=== PATIENT | male | born 1960 | race Caucasian/White ===

== ENCOUNTER 2020-02-29 08:47 | Outpatient (CLI) | payer OTHER ==
[2020-02-29] MEDS ORDERED: Iopamidol 370 76% 100 ML VIAL ONE (12:48)
--- NOTE | 2020-02-29 17:56 | CT ---
CT ABDOMEN AND PELVIS WITH CONTRAST: 02/29/[address] of the abdomen and pelvis was done for evaluation of chronic right lower quadrant pain. The scans were done post IV contrast. The lung bases are clear. The liver, spleen, pancreas, adrenal glands and abdominal aorta showed no a cute findings. A 2 cm cyst is seen in the lower pole of the right kidney. There is a very large 6.6 x 3.3 cm parapelvic cyst associated with the left kidney. I see no hydronephrosis or renal calculi. The patient's colon is collapsed but nevertheless, there appears to be thickening of its wall through out its entire length all the way to the rectum. There is some diverticulosis present, but this thick ening is seen pretty much throughout the entire colon, including the right colon. Chronic colitis or inflammatory bowel disease comes to mind as possibilities. The small bowel was relatively benign in appearance, though there were a few loops of proximal small bowel that were maybe a little thicker th an normal. CT of the pelvis shows no mass, inflammatory change, or free fluid. Degenerative changes are seen in the spine. IMPRESSION: Diffuse colonic thickening, mild but definite. A chronic inflammatory condition such as colitis or in flammatory bowel disease is suspected. GI referral would be prudent. POS: HOME
== END 2020-02-29 08:48 | disposition home or self-care (01) ==
LOC: BURCT 08:47
PROVIDERS: ATTEND Family Medicine
DX: R10.31 Right lower quadrant pain (principal); K63.89 Other specified diseases of intestine
CPT/HCPCS: 74177; Q9967